=== PATIENT | female | born 1985 | race Two or more races ===

== ENCOUNTER 2021-04-28 11:37 | Emergency (ER) | payer SELFPAY ==
[~2021-04-28] VITALS: Ht 152.4 cm; Wt 93.0 kg
[2021-04-28 12:07] VITALS: BP 129/60
== END 2021-04-28 14:49 | disposition left against medical advice (07) ==
LOC: ER 11:37
DX: N39.0 Urinary tract infection, site not specified (principal)

== ENCOUNTER 2021-12-13 22:51 | Emergency (ER) | payer MEDICAID, OTHER ==
[2021-12-14 08:41] LABS: Urine Bacteria NONE SEEN /hpf (None Seen); Urine Blood 3+ /uL (Negative); Urine Hyaline Cast FEW /lpf (0 - 2); Urine Mucus FEW (None Seen); Urine Specific Gravity 1.031 (1.001-1.035); Urine WBC 11 /hpf (0 - 5)
[2021-12-14 09:39] LABS: Basophils # (auto) 0.1 10 ^3/uL (0-0.2); Basophils % (auto) 0.8 % (0.0-2.0); Eosinophils # (auto) 0.2 10 ^3/uL (0-0.8); Eosinophils % (auto) 2.1 % (0.0-7.0); Hemoglobin 12.3 g/dL (12.2-16.2); Lymphocytes # (auto) 1.6 10 ^3/uL (0.4-5.4); Lymphocytes % (auto) 14.8 % (10.0-50.0); Mean Corpuscular Hemoglobin 29.4 pg (28.0-32.0); Mean Corpuscular Hgb Conc. 34.3 g/dL (32.0-36.0); Mean Corpuscular Volume 85.6 fL (80.0-100.0); Monocytes # (auto) 0.8 10 ^3/uL (0-1.3); Monocytes % (auto) 7.2 % (0.0-12.0); Neutrophils # (auto) 8.3 10 ^3/uL (1.6-8.6); Neutrophils % (auto) 75.1 % (37.0-80.0); Red Cell Distribution Width 13.3 % (11.8-14.3)
[2021-12-14 09:59] LABS: BUN/Creatinine Ratio 15.6; Calcium 9.1 mg/dL (8.5-10.1); Magnesium 2.4 mg/dL (1.6-2.6); Potassium 3.8 mmol/L (3.5-5.1)
[2021-12-14 11:00] VITALS: BP 132/67
== END 2021-12-14 11:27 | disposition home or self-care (01) ==
LOC: ER 22:51
DX: O20.8 Other hemorrhage in early pregnancy (principal); H54.40 Blindness, one eye, unspecified eye; Z3A.12 12 weeks gestation of pregnancy
CPT/HCPCS: 36415; 76801; 80048; 81001; 83735; 84443; 84702; 85025

== ENCOUNTER 2022-06-04 09:52 | Observation (INO) | payer MEDICAID ==
[~2022-06-04] VITALS: Ht 167.6 cm; Wt 104.3 kg
[2022-06-04 12:27] LABS: Urine Bacteria FEW /hpf (None Seen); Urine Blood Negative /uL (Negative); Urine Specific Gravity 1.014 (1.001-1.035); Urine WBC 2 /hpf (0 - 5)
[2022-06-04] MEDS ORDERED: PREN1TAB71 OR ×2 (12:27)
[2022-06-04 13:14] LABS: Albumin 2.4 g/dL (3.4-5.0); Basophils # (auto) 0 10 ^3/uL (0-0.2); Basophils % (auto) 0.5 % (0.0-2.0); Eosinophils # (auto) 0.1 10 ^3/uL (0-0.8); Eosinophils % (auto) 1.1 % (0.0-7.0); Hematocrit 35.7 % (36.0-46.0); Hemoglobin 11.6 g/dL (12.2-16.2); INR 0.89 (0.9-1.15); Lymphocytes # (auto) 1.4 10 ^3/uL (0.4-5.4); Lymphocytes % (auto) 17.9 % (10.0-50.0); Mean Corpuscular Hemoglobin 27.7 pg (28.0-32.0); Mean Corpuscular Hgb Conc. 32.4 g/dL (32.0-36.0); Mean Corpuscular Volume 85.4 fL (80.0-100.0); Monocytes # (auto) 0.7 10 ^3/uL (0-1.3); Monocytes % (auto) 8.9 % (0.0-12.0); Neutrophils # (auto) 5.6 10 ^3/uL (1.6-8.6); Neutrophils % (auto) 71.6 % (37.0-80.0); Partial Thromboplastin Time 26.2 sec (24.6-33.4); Potassium 4.2 mmol/L (3.5-5.1); Red Blood Cells 4.18 10^6/uL (4.0-5.20); Red Cell Distribution Width 14.5 % (11.8-14.3); White Blood Cell 7.8 10^3/uL (4.4-10.8)
[2022-06-04 13:20] LABS: BUN/Creatinine Ratio 12.3
[2022-06-04 13:21] LABS: Bilirubin, Total 0.4 mg/dL (0.2-1.0); Total Protein 6.1 g/dL (6.4-8.2); Uric Acid 4.7 mg/dL (2.6-6.0)
[2022-06-04 13:23] LABS: Protein, Urine 20.7 mg/dL (0.0-11.9)
== END 2022-06-04 14:00 | disposition home or self-care (01) ==
LOC: OB 09:52 → LDRP 10:06 → UNDOADMOB 11:25 → LDRP 11:25
PROVIDERS: ADMIT Obstetrics & Gynecology; ATTEND Obstetrics & Gynecology
DX: O13.3 Gestational [pregnancy-induced] hypertension without significant proteinuria, third trimester (principal); O09.523 Supervision of elderly multigravida, third trimester; O35.8XX0 Maternal care for other (suspected) fetal abnormality and damage, not applicable or unspecified; Z3A.37 37 weeks gestation of pregnancy
CPT/HCPCS: 36415; 59025; 76805; 76818; 80053; 81001; 81002; 82570; 84156; 84550; 85025; 85362; 85379; 85610; 85730; 94760; G0378

== ENCOUNTER 2022-06-06 10:00 | Observation (INO) | payer MEDICAID ==
[~2022-06-06] VITALS: Ht 30.5 cm; Wt 0.5 kg
[~2022-06-06 10:00] MED LIST: PREN1TAB71 OR
[2022-06-06 11:37] LABS: Protein, Urine 6.9 mg/dL (0.0-11.9)
[2022-06-06 12:05] LABS: 24 Hr. Total Protein, Urine 182.8 mg/24 Hr (<149.1)
[2022-06-06] MEDS ORDERED: LABETALOL HCL 200 MG TAB PO SCH ×2 (12:30→22:00)
== END 2022-06-06 14:09 | disposition home or self-care (01) ==
LOC: LDRP 10:00
PROVIDERS: ADMIT Obstetrics & Gynecology; ATTEND Obstetrics & Gynecology
DX: O14.93 Unspecified pre-eclampsia, third trimester (principal); O13.3 Gestational [pregnancy-induced] hypertension without significant proteinuria, third trimester; O09.523 Supervision of elderly multigravida, third trimester; O35.8XX0 Maternal care for other (suspected) fetal abnormality and damage, not applicable or unspecified; Z3A.38 38 weeks gestation of pregnancy
CPT/HCPCS: 59025; 76818; 81002; 84156; 94760; G0378

== ENCOUNTER 2022-06-09 08:07 | Observation (INO) | payer MEDICAID ==
[~2022-06-09 08:07] MED LIST changes: +LABE100T4 PO
== END 2022-06-09 10:26 | disposition home or self-care (01) ==
LOC: LDRP 08:15 → UNDOADMOB 08:15 → LDRP 09:05
PROVIDERS: ADMIT Obstetrics & Gynecology; ATTEND Obstetrics & Gynecology
DX: O13.3 Gestational [pregnancy-induced] hypertension without significant proteinuria, third trimester (principal); O09.513 Supervision of elderly primigravida, third trimester; Z3A.38 38 weeks gestation of pregnancy
CPT/HCPCS: 59025; 76818; 81002; G0378

== ENCOUNTER 2022-06-11 14:18 | Observation (INO) | payer MEDICAID | END 2022-06-11 17:04 | disposition home or self-care (01) | LOC: UNDOADMOB 14:46 → LDRP 14:46 → UNDODISOB 17:04 | PROVIDERS: ADMIT Obstetrics & Gynecology; ATTEND Obstetrics & Gynecology | DX: O10.913 Unspecified pre-existing hypertension complicating pregnancy, third trimester (principal); O09.523 Supervision of elderly multigravida, third trimester; O13.3 Gestational [pregnancy-induced] hypertension without significant proteinuria, third trimester; Z3A.38 38 weeks gestation of pregnancy | CPT/HCPCS: 59025; 76818; 81002; 82948; 94760; G0378 ==

== ENCOUNTER 2022-06-12 22:55 | Inpatient (IN) | payer MEDICAID ==
[~2022-06-12] VITALS: Ht 167.6 cm; Wt 102.5 kg
[2022-06-13] VITALS (26 sets, daily range): BP systolic 121–166; BP diastolic 60–95
[2022-06-13] MEDS ORDERED: LIDOCAINE 2%HCL (LOCAL ANESTH.) INJ 10ml MDV IJ PRN (00:30)
[2022-06-13] MEDS ORDERED: miSOPROStol 50 MCG per PRE-CUT 1/2 TAB PO PRN (00:30)
[2022-06-13] MEDS ORDERED: PROMETHAZINE HCL 25 MG/ML 1ML IV PRN (00:30)
[2022-06-13] MEDS ORDERED: BUTORPHANOL TARTRATE 2 MG/1 ML VIAL IV PRN ×2 (00:30)
[2022-06-13] MEDS ORDERED: WITCH HAZEL-GLYCERIN PAD TOP PRN (00:30)
[2022-06-13] MEDS ORDERED: PHISODERM TOP SOLN 240ML BTL TOP PRN (00:30)
[2022-06-13] MEDS ORDERED: LACT. RINGERS/OXYTOCIN 20UNITS 500 ML IV ONE ×2 (00:30→01:00)
[2022-06-13] MEDS ORDERED: DERMOPLAST 60ML BOTTLE TOP PRN (00:30)
[2022-06-13 01:05] LABS: Hemoglobin 11.3 g/dL (12.2-16.2); Lymphocytes # (auto) 1.7 10 ^3/uL (0.4-5.4); Lymphocytes % (auto) 19.9 % (10.0-50.0); Nucleated Red Blood Cells % 0.1 %
[2022-06-13 01:09] LABS: Basophils # (auto) 0.1 10 ^3/uL (0-0.2); Basophils % (auto) 0.7 % (0.0-2.0); Eosinophils # (auto) 0.1 10 ^3/uL (0-0.8); Eosinophils % (auto) 1.6 % (0.0-7.0); Hematocrit 32.7 % (36.0-46.0); Mean Corpuscular Hgb Conc. 34.4 g/dL (32.0-36.0); Mean Corpuscular Volume 84.3 fL (80.0-100.0); Monocytes # (auto) 0.7 10 ^3/uL (0-1.3); Monocytes % (auto) 7.7 % (0.0-12.0); Neutrophils # (auto) 6.1 10 ^3/uL (1.6-8.6); Neutrophils % (auto) 70.1 % (37.0-80.0); Red Blood Cells 3.88 10^6/uL (4.0-5.20); Red Cell Distribution Width 15.1 % (11.8-14.3); White Blood Cell 8.8 10^3/uL (4.4-10.8)
[2022-06-13 01:22] LABS: INR 0.9 (0.9-1.15); Partial Thromboplastin Time 26.7 sec (24.6-33.4)
[2022-06-13] MEDS: LACTATED RINGER'S 1,000 ML IV SCH ×3 (01:35→19:12)
[2022-06-13 01:59] LABS: Albumin 2.5 g/dL (3.4-5.0); Calcium 9.2 mg/dL (8.5-10.1); Potassium 4.2 mmol/L (3.5-5.1); Uric Acid 4.8 mg/dL (2.6-6.0)
[2022-06-13 02:03] LABS: BUN/Creatinine Ratio 11.3; Bilirubin, Total 0.3 mg/dL (0.2-1.0); Total Protein 6.8 g/dL (6.4-8.2)
[2022-06-13] MEDS: hydrALAZINE HCL 20 MG/ML VL IV PRN ×3 (03:41→10:39)
[2022-06-13 05:09] LABS: Alcohol, Urine < 3.0 mg/dL (0-10); Amphetamine Screen, Urine NEGATIVE (NEGATIVE); Barbiturate Scree,Urine NEGATIVE (NEGATIVE); Benzodiazephine Screen, Urine NEGATIVE (NEGATIVE); Cannabinoid Screen, Urine NEGATIVE (NEGATIVE); Cocaine Screen, Urine NEGATIVE (NEGATIVE); Opiate Scree,Urine NEGATIVE (NEGATIVE); Phencyclidine Screen, Urine NEGATIVE (NEGATIVE)
[2022-06-13 05:15] LABS: Urine Bacteria FEW /hpf (None Seen); Urine Blood Negative /uL (Negative); Urine WBC 1 /hpf (0 - 5)
[2022-06-13] MEDS ORDERED: ceFAZolin 1GM/50ML 50 ML IV ONE (06:00)
[2022-06-13] MEDS ORDERED: LACTATED RINGER'S 1,000 ML IV ONE (06:00)
[2022-06-13 06:14] LABS: Protein, Urine 10.3 mg/dL (0.0-11.9)
[2022-06-13] MEDS ORDERED: MORPHINE SULF PF 5 MG/10 ML VIAL ONE (07:17)
[2022-06-13] MEDS ORDERED: DexAMETHasone SOD PHOS 10MG/1ML VIAL INJ ONE (07:54)
[2022-06-13] MEDS ORDERED: ePHEDrine SULFATE 50 MG/ML AMP ONE (07:54)
[2022-06-13] MEDS ORDERED: ONDANSETRON HCL 4 MG/2 ML VIAL ONE (07:54)
[2022-06-13] MEDS ORDERED: oxyTOCIN 10 UNIT/ML 10ML VIAL ONE (07:55)
[2022-06-13] MEDS ORDERED: LACT. RINGERS/OXYTOCIN 20UNITS 1,000 ML IV ONE (08:15)
[2022-06-13] MEDS ORDERED: ceFAZolin 1GM/50ML 50 ML IV SCH ×3 (08:15→15:00)
[2022-06-13] MEDS ORDERED: diphenhdrAMINE HCL 50 MG/1 ML VL IV PRN (08:45)
[2022-06-13] MEDS ORDERED: ONDANSETRON HCL 4 MG/2 ML VIAL IV PRN ×3 (08:45→10:00)
[2022-06-13] MEDS ORDERED: NALOXONE HCL 0.4 MG/ML VIAL IV PRN (08:45)
[2022-06-13] MEDS ORDERED: hydrALAZINE HCL 20 MG/ML VL IV PRN (08:45)
[2022-06-13] MEDS ORDERED: HYDROmorphone HCL 2 MG/ML VL/or syr IV PRN ×2 (08:45)
[2022-06-13] MEDS ORDERED: LABETALOL HCL 5 MG/ML 4ML SYRINGE IV PRN (08:45)
[2022-06-13] MEDS: ONDANSETRON HCL 4 MG/2 ML VIAL IV PRN ×2 (10:35→18:54)
[2022-06-13] MEDS: ACETAMINOPHEN IV 1000 MG/100ML (10MG/ML) IV PRN (11:02)
[2022-06-13] MEDS: ceFAZolin 1GM/50ML 50 ML IV SCH (18:54)
[2022-06-13] MEDS ORDERED: GUM (CHEWING) 1 GUM CHEW CHEW ONE (20:18)
[2022-06-14] VITALS (13 sets, daily range): BP systolic 113–139; BP diastolic 66–77
[2022-06-14 00:23] LABS: Basophils # (auto) 0.1 10 ^3/uL (0-0.2); Basophils % (auto) 0.4 % (0.0-2.0); Eosinophils # (auto) 0 10 ^3/uL (0-0.8); Eosinophils % (auto) 0.3 % (0.0-7.0); Lymphocytes # (auto) 1.4 10 ^3/uL (0.4-5.4); Lymphocytes % (auto) 11.4 % (10.0-50.0); Mean Corpuscular Hemoglobin 28.1 pg (28.0-32.0); Mean Corpuscular Hgb Conc. 33.1 g/dL (32.0-36.0); Mean Corpuscular Volume 84.6 fL (80.0-100.0); Monocytes % (auto) 8.2 % (0.0-12.0); Neutrophils # (auto) 9.8 10 ^3/uL (1.6-8.6); Neutrophils % (auto) 79.7 % (37.0-80.0); Red Cell Distribution Width 14.9 % (11.8-14.3); White Blood Cell 12.4 10^3/uL (4.4-10.8)
[2022-06-14] MEDS: ACETAMINOPHEN IV 1000 MG/100ML (10MG/ML) IV PRN (01:24)
[2022-06-14] MEDS: ceFAZolin 1GM/50ML 50 ML IV SCH ×2 (03:11→11:00)
[2022-06-14 06:06] LABS: RPR Non Reactive (Non Reactive)
[2022-06-14] MEDS: LACTATED RINGER'S 1,000 ML IV SCH (06:09)
[2022-06-14 06:59] LABS: Basophils # (auto) 0.1 10 ^3/uL (0-0.2); Basophils % (auto) 0.4 % (0.0-2.0); Eosinophils # (auto) 0.1 10 ^3/uL (0-0.8); Eosinophils % (auto) 0.5 % (0.0-7.0); Hematocrit 31.3 % (36.0-46.0); Hemoglobin 10.3 g/dL (12.2-16.2); Lymphocytes # (auto) 1.7 10 ^3/uL (0.4-5.4); Lymphocytes % (auto) 13.8 % (10.0-50.0); Mean Corpuscular Hemoglobin 28.1 pg (28.0-32.0); Mean Corpuscular Hgb Conc. 32.9 g/dL (32.0-36.0); Mean Corpuscular Volume 85.3 fL (80.0-100.0); Monocytes # (auto) 0.8 10 ^3/uL (0-1.3); Neutrophils # (auto) 9.5 10 ^3/uL (1.6-8.6); Neutrophils % (auto) 78.3 % (37.0-80.0); Red Blood Cells 3.67 10^6/uL (4.0-5.20); White Blood Cell 12.1 10^3/uL (4.4-10.8)
[2022-06-14] MEDS ORDERED: IBUPROFEN 800 MG TAB PO PRN (07:45)
[2022-06-14] MEDS ORDERED: HYDROcodone-ACET 5/325MG TAB PO PRN (07:45)
[2022-06-14] MEDS: HYDROcodone-ACET 5/325MG TAB PO PRN ×2 (10:08→16:20)
[2022-06-14] MEDS: DOCUSATE SOD 100 MG CAP PO SCH ×2 (10:09→22:24)
[2022-06-14] MEDS: SIMETHICONE 80 MG CHEWABLE TABLET PO SCH ×3 (12:00→22:24)
[2022-06-14] MEDS: CEPHALEXIN 250 MG CAP PO SCH ×2 (17:53→22:24)
[2022-06-14] MEDS: PHENAZOPYRIDINE HCL 100 MG TAB PO SCH (17:54)
[2022-06-15] MEDS: HYDROcodone-ACET 5/325MG TAB PO PRN ×2 (03:07→21:13)
[2022-06-15 03:15] VITALS: BP 108/60
[2022-06-15] MEDS: SIMETHICONE 80 MG CHEWABLE TABLET PO SCH ×3 (06:01→17:58)
[2022-06-15] MEDS: CEPHALEXIN 250 MG CAP PO SCH ×3 (06:01→17:58)
[2022-06-15] MEDS ORDERED: CEPH500T PO (07:09)
[2022-06-15] MEDS ORDERED: HYDR-4902 PO (07:10)
[2022-06-15] MEDS ORDERED: IBUP800T27 PO (07:10)
[2022-06-15] MEDS ORDERED: DOCU-94 PO (07:10)
[2022-06-15] MEDS: PHENAZOPYRIDINE HCL 100 MG TAB PO SCH ×3 (08:14→17:57)
[2022-06-15 11:00] VITALS: BP 128/72
[2022-06-15] MEDS: DOCUSATE SOD 100 MG CAP PO SCH (12:09)
[2022-06-15 15:00] VITALS: BP 128/76
[2022-06-15 19:15] VITALS: BP 147/83
== END 2022-06-15 21:45 | disposition home or self-care (01) | DRG 540 ==
LOC: LDRP 22:55
PROVIDERS: ADMIT Obstetrics & Gynecology; ATTEND Obstetrics & Gynecology
PROC: 10D00Z1 Extraction of Products of Conception, Low, Open Approach (ICD-10-PCS; principal; 2022-06-13 07:16)
DX: O13.4 Gestational [pregnancy-induced] hypertension without significant proteinuria, complicating childbirth (principal); O32.2XX0 Maternal care for transverse and oblique lie, not applicable or unspecified; Z20.822 Contact with and (suspected) exposure to COVID-19; Z37.0 Single live birth; Z3A.39 39 weeks gestation of pregnancy
CPT/HCPCS: 36415; 59025; 76815; 76818; 80053; 80307; 81001; 81002; 82570; 82948; 84112; 84156; 84550; 85025; 85610; 85730; 86592; 86850; 86900; 86901; 94760; 94762; 96360; 96361; 96366; 96374; 96375; G0378; J0131; J0690; J1100; J2405; J2590